=== PATIENT | male | born 1960 | race Caucasian/White ===

== ENCOUNTER 2021-10-23 12:52 | Emergency (ER) | payer BC, OTHER ==
[~2021-10-23] VITALS: Ht 182.9 cm; Wt 95.3 kg
[2021-10-23 12:53] VITALS: BP 162/92
[2021-10-23] MEDS ORDERED: ACET-66 PO (14:23)
[2021-10-23] MEDS ORDERED: IBUP-2070 PO (14:23)
[2021-10-23] MEDS ORDERED: SILVER SULFADIAZINE CREAM 50 GM TP SCH (15:30)
== END 2021-10-23 14:54 | disposition left against medical advice (07) ==
LOC: EDH 12:52
DX: S52.592A Other fractures of lower end of left radius, initial encounter for closed fracture (principal); T22.112A Burn of first degree of left forearm, initial encounter; I10 Essential (primary) hypertension; Z79.899 Other long term (current) drug therapy; W18.39XA Other fall on same level, initial encounter; Y93.53 Activity, golf; Y92.39 Other specified sports and athletic area as the place of occurrence of the external cause; Y99.8 Other external cause status
CPT/HCPCS: 29125; 73100

== ENCOUNTER → 2022-08-21 | Outpatient (CLI) | payer OTHER ==
[~2022-08-21] MED LIST: ACET-66 PO; IBUP-2070 PO
== END | disposition home or self-care (01) ==
LOC: SHCH 08:22
PROVIDERS: ATTEND Student in an Organized Health Care Education/Training Program
DX: I10 Essential (primary) hypertension (principal); E78.5 Hyperlipidemia, unspecified
CPT/HCPCS: 93306

== ENCOUNTER → 2023-11-28 | Outpatient (CLI) | payer OTHER ==
[2023-11-28 12:03] LABS: HEMOGLOBIN A1C 5.2 % (4.0-6.0)
[2023-11-28 12:05] LABS: CHOLESTEROL 204 mg/dL (<200); HDL CHOLESTEROL 68 mg/dL (29-71); LDL DIRECT 120 mg/dL (0-99); TRIGLYCERIDES 65 mg/dL (30-200)
== END | disposition home or self-care (01) ==
LOC: LAB 09:58
PROVIDERS: ATTEND Student in an Organized Health Care Education/Training Program
DX: I10 Essential (primary) hypertension (principal); E78.5 Hyperlipidemia, unspecified; Z79.899 Other long term (current) drug therapy
CPT/HCPCS: 36415; 80061; 83036